=== PATIENT | female | born 1990 | race Caucasian/White ===

== ENCOUNTER 2017-07-06 02:25 | Emergency (ER) | payer OTHER ==
[~2017-07-06] VITALS: Ht 167.6 cm; Wt 72.6 kg
[~2017-07-06 02:25] MED LIST: ACETAMINOPHEN-1 EAC1 PO; AMOXICILLIN 50500 M1 PO; AUGMENTIN 875875 MG PO; AZITHROMYCIN 2250 MG PO; BACTRIM DS TAB1 EACH PO; BENTYL 20 MG TA20 M1 PO; CIPROFLOXACIN500 M1 PO; FLEXERIL PO; IBUPROFEN 800800 M1; IBUPROFEN 800800 MG PO; NOHOMEMEDICATIONS; NORCO 5-325 TA1 EACH PO; ONDANSETRON HCL4 M2 PO; PAXIL10 MG PO; PERCOCET 5-3251 EACH PO; PROZAC40 MG PO; ROBAXIN500 MG PO; TRAMADOL 50 MG50 MG PO; ZOFRAN ODT4 MG PO
[2017-07-06 02:52] LABS: URINE BILIRUBIN NEGATIVE (Negative); URINE BLOOD NEGATIVE (Negative); URINE CLARITY CLEAR; URINE COLOR YELLOW; URINE GLUCOSE-RANDOM NEGATIVE (Negative); URINE KETONES NEGATIVE (Negative); URINE LEUKOCYTES-REFLEX NEGATIVE (Negative); URINE NITRITE-REFLEX NEGATIVE (Negative); URINE PROTEIN NEGATIVE (Negative); URINE SPECIFIC GRAVITY 1.025 (1.005-1.030)
[2017-07-06 03:16] LABS: ABSOLUTE BASOPHILS 0.1 thou/uL (0.0-0.2); ABSOLUTE EOSINOPHILS 0.1 thou/uL (0.0-0.7); ABSOLUTE LYMPHOCYTES 2.3 thou/uL (0.8-5.3); ABSOLUTE MONOCYTES 0.9 thou/uL (0.0-1.2); ABSOLUTE NEUTROPHILS 8.3 thou/uL (1.6-8.1); HEMATOCRIT 40.5 % (37.0-47.0); HEMOGLOBIN 13.5 gm/dL (12.0-15.0); LYMPHOCYTES 19.8 %; MCH 29.3 pg (26.0-34.0); MCHC 33.3 g/dL (28.0-37.0); MONOCYTES 7.3 %; MPV 9.2 fl. (7.2-11.1); NUCLEATED RBCS 0 /100WBC; PLATELET COUNT* 323 thou/uL (150-400); POLYS 70.9 %; RDW-CV 14.2 % (10.5-14.5); WBC 11.7 thou/uL (4.0-11.0)
[2017-07-06 03:25] LABS: CALCIUM 9.3 mg/dL (8.5-10.1); CREATININE 0.9 mg/dL (0.6-1.3)
[2017-07-06 03:30] LABS: AMP/METHAMP POSITIVE (Negative); BARBITURATES Negative (Negative); BENZODIAZEPINES Negative (Negative); COCAINE Negative (Negative); METHADONE Negative (Negative); OPIATES Negative (Negative); PCP Negative (Negative); THC Negative (Negative)
[2017-07-06 03:45] VITALS: BP 155/82
== END 2017-07-06 03:45 | disposition home or self-care (01) ==
LOC: M.ERS 02:25
PROVIDERS: Emergency Medicine
DX: R07.81 Pleurodynia (principal); J45.909 Unspecified asthma, uncomplicated; Z90.710 Acquired absence of both cervix and uterus; Z77.22 Contact with and (suspected) exposure to environmental tobacco smoke (acute) (chronic)

== ENCOUNTER 2020-06-02 00:43 | Emergency (ER) | payer OTHER ==
[~2020-06-02] VITALS: Ht 167.6 cm; Wt 70.3 kg
[2020-06-02 01:42] LABS: ABSOLUTE BASOPHILS 0.1 thou/uL (0.0-0.2); ABSOLUTE EOSINOPHILS 0.1 thou/uL (0.0-0.7); ABSOLUTE LYMPHOCYTES 1.7 thou/uL (0.8-5.3); ABSOLUTE MONOCYTES 0.6 thou/uL (0.0-1.2); ABSOLUTE NEUTROPHILS 7.5 thou/uL (1.6-8.1); EOSINOPHILS 1.2 %; HEMATOCRIT 40.7 % (37.0-47.0); HEMOGLOBIN 13.3 gm/dL (12.0-15.0); LYMPHOCYTES 17.1 %; MCH 29.4 pg (26.0-34.0); MCHC 32.7 g/dL (28.0-37.0); MONOCYTES 6.1 %; MPV 8.2 fl. (7.2-11.1); NUCLEATED RBCS 0 /100WBC; PLATELET COUNT* 338 thou/uL (150-400); POLYS 74.6 %; RBC 4.52 mil/uL (4.20-5.00); RDW-CV 13.4 % (10.5-14.5); WBC 10.1 thou/uL (4.0-11.0)
[2020-06-02 01:51] LABS: CALCIUM 8.9 mg/dL (8.5-10.1); CREATININE 0.8 mg/dL (0.6-1.3); POTASSIUM 3.6 mmol/L (3.5-5.1)
[2020-06-02 01:53] LABS: PROTIME 10.6 Seconds (9.20-11.50)
[2020-06-02 01:55] LABS: ALBUMIN 3.5 g/dL (3.4-5.0); TOTAL BILIRUBIN 0.5 mg/dL (<0.1-1.0); TOTAL PROTEIN 7.4 g/dL (6.4-8.2)
[2020-06-02] MEDS ORDERED: HYDROCODON-ACE1 EAC8 PO (03:25)
[2020-06-02] MEDS ORDERED: FLEXERIL PO (03:25)
[2020-06-02 03:47] VITALS: BP 99/48
== END 2020-06-02 03:50 | disposition home or self-care (01) ==
LOC: M.ERS 00:43
PROVIDERS: Emergency Medicine
DX: M54.2 Cervicalgia (principal); M54.6 Pain in thoracic spine; R22.0 Localized swelling, mass and lump, head; R51.9 Headache, unspecified; J45.909 Unspecified asthma, uncomplicated; Z98.51 Tubal ligation status; Z90.710 Acquired absence of both cervix and uterus; Z77.22 Contact with and (suspected) exposure to environmental tobacco smoke (acute) (chronic); V49.49XA Driver injured in collision with other motor vehicles in traffic accident, initial encounter; Y93.89 Activity, other specified; Y92.89 Other specified places as the place of occurrence of the external cause; Y99.8 Other external cause status